=== PATIENT | female | born 1950 ===

== ENCOUNTER 2024-11-14 12:37 | Inpatient (IN) | payer OTHER ==
[~2024-11-14] VITALS: Ht 149.9 cm; Wt 78.9 kg
[2024-11-14] MEDS ORDERED: PEPCID AC20 MG PO (13:45)
[2024-11-14] MEDS ORDERED: LOSARTAN POTASS50 MG PO (13:45)
[2024-11-14] MEDS ORDERED: OXYBUTYNIN CHLOR5 MG PO (13:46)
[2024-11-14] MEDS ORDERED: HUMALOG100 UNIT/2 (13:47)
[2024-11-14] MEDS ORDERED: LANTUS SOL100 UNIT/1 (13:47)
[2024-11-14] MEDS ORDERED: TYLENOL ARTHRI650 MG PO (13:47)
[2024-11-14] MEDS ORDERED: AROMASIN25 MG PO (13:49)
[2024-11-20] MEDS ORDERED: CEFTRIAXONE SODIUM 2,000 MG VIAL ONE (08:20)
[2024-11-20] MEDS ORDERED: METRONIDAZOLE/SODIUM CHLORIDE 500 MG/100 ML PIGGYBACK IV ONE ×2 (08:20→12:45)
[2024-11-20] MEDS ORDERED: BUPIVACAINE HCL/MPF 0.5% 30ML VIAL ONE (11:26)
[2024-11-20] MEDS ORDERED: LIDOCAINE HCL 1%/EPINEPHRINE 20ML VIAL IJ ONE ×2 (11:26→12:45)
[2024-11-20] MEDS ORDERED: BUPIVACAINE HCL 30 ML VIAL IJ ONE (12:45)
[2024-11-20] MEDS ORDERED: CEFTRIAXONE SODIUM 2,000 MG VIAL IV ONE (12:45)
[2024-11-20] MEDS ORDERED: MORPHINE SULFATE 4 MG/ML CARTRIDGE IV PRN (14:00)
[2024-11-20] MEDS ORDERED: DEXTROSE 50 % IN WATER 0.5 G/ML VIAL IV PRN ×2 (14:00→16:45)
[2024-11-20] MEDS ORDERED: OxyCODONE HCL 5 MG TABLET (ROXICODONE) PO PRN (14:00)
[2024-11-20] MEDS ORDERED: ONDANSETRON HCL 2 MG/ML VIAL IV PRN (14:00)
[2024-11-20] MEDS ORDERED: RINGERS SOLUTION,LACTATED 1,000 ML IV SCH (14:00)
[2024-11-20] MEDS ORDERED: ACETAMINOPHEN 325 MG TABLET PO PRN (14:15)
[2024-11-20] MEDS ORDERED: ENALAPRILAT DIHYDRATE 1.25 MG/ML VIAL IV ONE (15:52)
[2024-11-20] MEDS ORDERED: ENALAPRILAT DIHYDRATE 1.25 MG/ML VIAL IV PRN (16:30)
[2024-11-20] MEDS ORDERED: INSULIN LISPRO 1,000 UNIT/10 ML UNITS SUBCUTANEO PRN (16:45)
[2024-11-20] MEDS ORDERED: METOCLOPRAMIDE HCL 5 MG/ML VIAL IV SCH (17:00)
[2024-11-20] MEDS ORDERED: POLYETHYLENE GLYCOL 3350 17 GM BLIST.PACK PO SCH (17:00)
[2024-11-20] MEDS ORDERED: HYOSCYAMINE SULFATE 0.125 MG TAB.SUBL SL SCH (17:00)
[2024-11-20] MEDS ORDERED: GABAPENTIN 300 MG CAPSULE PO SCH (17:00)
[2024-11-20] MEDS ORDERED: SIMETHICONE 125 MG CAPSULE PO SCH (17:00)
[2024-11-20] MEDS ORDERED: LEVALBUTEROL HCL 0.63 MG/3 ML SOLUTION IH SCH (18:00)
[2024-11-20 18:25] LABS: BASO % 0.1 % (0.1-1.2); HEMATOCRIT 42.5 % (34.1-44.9); HEMOGLOBIN 14.1 g/dL (11.2-15.7); LYMPH # 1.22 (1.18-3.74); LYMPH % 11.5 % (19.3-53.1); MEAN CORPUSCULAR HEMOGLOBIN 29.9 pg (25.6-32.2); MONO # 0.85 (0.24-0.82); NEUT # 8.51 (1.56-6.13); NEUT % 80.1 % (34.0-71.1); PLATELET COUNT 135 K/uL (163-369); RED BLOOD COUNT 4.71 M/uL (3.93-5.22); RED CELL DISTRIBUTION WIDTH 12.2 % (11.6-14.4)
[2024-11-20 19:05] LABS: ABG PH 7.384 (7.35-7.45); ABG pCO2 42.9 mmHg (35-45)
[2024-11-20 19:06] LABS: BASE EXCESS -0.2 mmol/l; SaO2 99.6 %; Tco2 26.4 mmol/l; allen test SATISFACTORY; mode NASAL CANNULA; o2 35 %; puncture site BRADIAL RIGHT
[2024-11-20 19:07] LABS: ABG PO2 187.8 mmHg (80-100)
[2024-11-20] MEDS ORDERED: LABETALOL HCL 100 MG/20 ML ML ONE (20:20)
[2024-11-20] MEDS ORDERED: FAMOTIDINE/PF 20 MG/2 ML VIAL IV PUSH SCH (21:00)
[2024-11-20] MEDS ORDERED: SIMETHICONE 125 MG CAPSULE PO ONE (21:05)
[2024-11-20] MEDS ORDERED: FAMOTIDINE/PF 20 MG/2 ML VIAL ONE (21:05)
[2024-11-20 21:17] VITALS: BP 163/77; O2SAT 95
[2024-11-20 22:09] VITALS: O2SAT 96
[2024-11-21] VITALS (7 sets, daily range): BP systolic 130–173; BP diastolic 77–118; O2SAT 90–100
[2024-11-21] MEDS ORDERED: INSULIN LISPRO 1,000 UNIT/10 ML UNITS SUBCUTANEO STA (08:37)
[2024-11-21 08:49] LABS: BASO % 0.2 % (0.1-1.2); EOS # 0.01 (0.04-0.54); EOS % 0.1 % (0.7-7.0); HEMATOCRIT 40.3 % (34.1-44.9); HEMOGLOBIN 13.5 g/dL (11.2-15.7); LYMPH # 1.11 (1.18-3.74); LYMPH % 11.5 % (19.3-53.1); MEAN CORPUSCULAR HEMOGLOBIN 30.2 pg (25.6-32.2); MONO # 1.04 (0.24-0.82); MONO % 10.8 % (4.7-12.5); NEUT # 7.41 (1.56-6.13); NEUT % 77.1 % (34.0-71.1); PLATELET COUNT 131 K/uL (163-369); RED BLOOD COUNT 4.47 M/uL (3.93-5.22); RED CELL DISTRIBUTION WIDTH 12.3 % (11.6-14.4)
[2024-11-21] MEDS ORDERED: LACTOBACILLUS ACIDOPHILUS 1 CAP CAP PO SCH (09:00)
[2024-11-21] MEDS ORDERED: INSULIN GLARGINE,HUM.REC.ANLOG 1,000 UNITS/10 ML UNITS SUBCUTANEO SCH (09:00)
[2024-11-21] MEDS ORDERED: LOSARTAN POTASSIUM 50 MG TABLET PO SCH (09:00)
[2024-11-21] MEDS ORDERED: LACTULOSE 20 G/30 ML BLIST.PACK PO SCH (09:00)
[2024-11-21 09:44] LABS: ALBUMIN 3.1 gm/dL (3.4-5.0); CALCIUM 9.4 mg/dL (8.5-10.1); CREATININE SERUM 0.8 mg/dL (0.55-1.02); GFR 69.92; MAGNESIUM 1.9 mg/dL (1.8-2.4); PHOSPHOROUS 2.8 mg/dL (2.5-4.9); POTASSIUM 4.49 mEq/L (3.5-5.1)
[2024-11-21] MEDS ORDERED: INSULIN LISPRO 1,000 UNIT/10 ML UNITS SUBCUTANEO SCH (12:00)
[2024-11-21] MEDS ORDERED: ENOXAPARIN SODIUM 40 MG/0.4 ML SYRINGE SUBCUTANEO SCH (17:00)
[2024-11-22] VITALS (7 sets, daily range): BP systolic 135–180; BP diastolic 78–90; O2SAT 88–99
[2024-11-22 07:05] LABS: BASO % 0.1 % (0.1-1.2); EOS # 0.09 (0.04-0.54); EOS % 1.2 % (0.7-7.0); HEMATOCRIT 39.8 % (34.1-44.9); HEMOGLOBIN 13.1 g/dL (11.2-15.7); LYMPH # 1.53 (1.18-3.74); LYMPH % 19.9 % (19.3-53.1); MEAN CORPUSCULAR HEMOGLOBIN 30.8 pg (25.6-32.2); MONO # 0.97 (0.24-0.82); NEUT # 5.06 (1.56-6.13); NEUT % 65.9 % (34.0-71.1); RED BLOOD COUNT 4.26 M/uL (3.93-5.22); RED CELL DISTRIBUTION WIDTH 12.2 % (11.6-14.4)
[2024-11-22 07:08] LABS: CALCIUM 9.6 mg/dL (8.5-10.1); CREATININE SERUM 0.7 mg/dL (0.55-1.02); GFR 81.57; MAGNESIUM 2.3 mg/dL (1.8-2.4); PHOSPHOROUS 2.9 mg/dL (2.5-4.9); POTASSIUM 3.99 mEq/L (3.5-5.1)
[2024-11-22 07:40] LABS: MONO % 12.6 % (4.7-12.5)
[2024-11-22 07:41] LABS: PLATELET COUNT 117 K/uL (163-369)
== END 2024-11-22 18:09 | disposition home or self-care (01) | DRG 331 ==
LOC: O/R 11-20 06:00 → SURH 11-20 12:45
PROVIDERS: Internal Medicine Geriatric Medicine; ADMIT Colon & Rectal Surgery; ATTEND Colon & Rectal Surgery
PROC: 07BB4ZZ Excision of Mesenteric Lymphatic, Percutaneous Endoscopic Approach (ICD-10-PCS; 2024-11-20)
PROC: 4A12X4Z Monitoring of Cardiac Electrical Activity, External Approach (ICD-10-PCS; 2024-11-20)
PROC: 0DTF4ZZ Resection of Right Large Intestine, Percutaneous Endoscopic Approach (ICD-10-PCS; principal; 2024-11-20 16:45)
DX: C18.0 Malignant neoplasm of cecum (principal); E11.65 Type 2 diabetes mellitus with hyperglycemia; Z79.4 Long term (current) use of insulin; I25.10 Atherosclerotic heart disease of native coronary artery without angina pectoris; I11.9 Hypertensive heart disease without heart failure; E66.9 Obesity, unspecified; R59.0 Localized enlarged lymph nodes; D69.6 Thrombocytopenia, unspecified